=== PATIENT | male | born 1960 | race Caucasian/White ===

== ENCOUNTER 2018-07-05 05:27 | Day surgery (SDC) | payer OTHER ==
[2018-06-24 13:17] LABS: HEMATOCRIT 42.8 % (37.9-51.0); HEMOGLOBIN 15.1 g/dL (13.5-17.0); MEAN CORPUSCULAR HEMOGLOBIN 30.5 pg (27.0-33.4); MEAN CORPUSCULAR HGB CONC 35.2 g/dL (32.0-36.0); MEAN CORPUSCULAR VOLUME 87 fl (80-97); PLATELET COUNT 195 10^3/uL (150-450); RED BLOOD COUNT 4.95 10^6/uL (4.35-5.55); RED CELL DISTRIBUTION WIDTH 13.2 % (11.5-14.0); WHITE BLOOD COUNT 7.3 10^3/uL (4.0-10.5)
[2018-06-24 13:31] LABS: INTERNATIONAL RATION (INR) 0.99; PROTHROMBIN TIME 13.6 SEC (11.4-15.4)
[2018-06-24 13:32] LABS: PARTIAL THROMBOPLASTIN TIME 30.1 SEC (23.5-35.8)
[2018-06-24 13:42] LABS: ANION GAP 11 (5-19); BLOOD UREA NITROGEN 16 mg/dL (7-20); CALCIUM 9.3 mg/dL (8.4-10.2); CARBON DIOXIDE 26 mmol/L (22-30); CHLORIDE 102 mmol/L (98-107); GLUCOSE 162 mg/dL (75-110); POTASSIUM 4.2 mmol/L (3.6-5.0); SODIUM 139.4 mmol/L (137-145)
--- NOTE | 2018-06-24 18:51 | EKG REPORT ---
SEVERITY:- NORMAL ECG - SINUS RHYTHM : Confirmed by: Lachelle Chambers 24-Jun-2018 18:50:17
[~2018-07-05 05:27] MED LIST: CEFAZOLIN 1 GM/D5W RTU 1 GM/50 ML RTUPB IV ONE; CEFAZOLIN 1 GM/D5W RTU 1 GM/50 ML RTUPB IV PRN; LACTATED RINGERS 1000 ML IV PRN; LIDOCAINE 0.5% INJ-PF (5 MG/ML) 50 ML SDV SUBCUT PRN
[2018-07-05] MEDS ORDERED: FENTANYL CITRATE INJ/PF 100 MCG/2 ML AMPUL ONE (06:43)
[2018-07-05] MEDS ORDERED: HYDROMORPHONE HCL INJ/PF 2 MG/ML AMPULE ONE (06:44)
[2018-07-05] MEDS ORDERED: MIDAZOLAM 2 MG/2 ML INJ ONE (06:44)
[2018-07-05] MEDS ORDERED: PROPOFOL INJ 200 MG/20 ML VIAL IV ONE ×3 (06:44→09:46)
[2018-07-05] MEDS ORDERED: SODIUM BICARBONATE 8.4% INJ 50 MEQ/50 ML DISP.SYRIN ONE (07:12)
[2018-07-05] MEDS ORDERED: LIDOCAINE 1%/EPINEPHRINE INJ 20 ML VIAL ONE (07:12)
[2018-07-05] MEDS ORDERED: OXYCODONE-ACETAMINOPHEN 5-325 MG TABLET PO PRN ×2 (08:12)
[2018-07-05] MEDS ORDERED: DIPHENHYDRAMINE HCL 50 MG/ML VIAL IV PRN (08:12)
[2018-07-05] MEDS ORDERED: PROMETHAZINE HCL INJ 25 MG/1 ML VIAL IV PRN (08:12)
[2018-07-05] MEDS ORDERED: FENTANYL CITRATE INJ/PF 100 MCG/2 ML AMPUL IV PRN ×3 (08:12)
[2018-07-05] MEDS ORDERED: MORPHINE SULFATE 10 MG/ML INJ IV PRN (08:12)
[2018-07-05] MEDS ORDERED: MEPERIDINE HCL/PF INJ 25 MG/1 ML DISP.SYRIN IV PRN (08:12)
[2018-07-05] MEDS ORDERED: ONDANSETRON HCL INJ/PF 4 MG/2 ML SDV IV PRN (08:12)
--- NOTE | 2018-07-05 09:45 | Operative Report ---
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 Patient was brought into the operating room and placed on the operating room table in a sloppy lateral position. Patient was then prepped with a Betadine scrub and Betadine solution and draped in a sterile and aseptic manner. The area was then marked. The area was marked with a half a centimeter and a 1 cm margin. It was felt that we can achieve a 1 cm margin so we decided to go with a 1 cm margin resection. Even though the pathology came back melanoma in situ was a very aggressive appearing lesion. We also had clear the margins on our initial resection. There was an open wound that was healing and some of the healing process was excluded from the measurement of the margins. This would give us the widest margin and safest margin that we could possibly obtain still being able to give him a great anesthetic reconstruction. So after we outlined the area to be resected we used a 1 cm outline florentin. The area was then anesthetized with 1% lidocaine with epinephrine and bicarbonate for its anesthetic and hemostatic effects. The area that was outlined was then excised. The bipolar and the [place] tip Bovie was used for the dissection. The dissection continued down through Harshad's fascia down to the muscle fascia. We then resected the area off of the muscle fascia. Throughout the case the bipolar and Bovie were used for hemostasis. This was a very large defect. We had considered a primary closure but this would go against the natural relaxed skin tension lines. A primary closure would be too tight and would have increased chance of dehiscence. This will leave more of a scar so we decided to use a sliding advancement flap reconstruction which would camouflage the scar better and take tension off of the closure so that would be less chances of complications. The flap that we used was able to harvest some of the laxity of the skin in order to give a tension-free closure. There was also a flap that would be traceable in case there was any problem with the pathology. Then we went ahead and outlined the flap and anesthetized it. We then incised the flap and developed a flap maintaining the subdermal plexus. Then we undermined 360 to allow for plate like scarring and minimize trap door deformity. Throughout the case hemostasis was achieved with the bipolar. We then sutured the flap into its new position using 2-0 Vicryl to close the Harshad's fascia for the subcutaneous and deep dermis. Skin was closed with a running subcuticular suture stitch using 3-0 PDS with knots being tied on the outside. And 3-0 PDS suture was used for support and placed in the central area of the incision. We then applied tincture Dermabond followed by a light pressure dressing. Patient was then reversed from anesthesia and taken to the [facility] for recovery. The patient tolerated well. There were no complications. Lesion size was 4 x 4.8 cm measuring from the inner margin please see pathology for actual size. Portions of this note may be dictated using [employer] voice recognition software. Occasional variations and spelling and vocabulary could be possible and are unintentional. Subjective: No complaints Objective: Vital signs stable afebrile No bleeding Dressing intact Assessment and plan: Doing well. Elevate the operative site. Resume medications. Take antibiotics for 1 day Follow-up Full instructions were given to the patient and family and they understand Portions of this note may be dictated using [employer] voice recognition software. Occasional variations and spelling and vocabulary could be possible and are unintentional. Additionally, there is a chance that some errors may not be caught or corrected. Please notify the offer of any discrepancies noted or if any statements are unclear. Additionally, there is a chance that some errors may not be caught or corrected. Please notify the author of any discrepancies noted or if any statements are unclear.
--- NOTE | 2018-07-05 09:47 | Discharge Summary ---
Discharge Summary (SDC) - Discharge Final Diagnosis: Melanoma in situ of the right of the midline central back Date of Surgery: 07/05/18 Condition: Good Forms: ASU Anesthesia D/C Instruction, Discharge POC-Surgical Service Treatment or Instructions: Antibiotics for 1 day, then discontinue. Elevate operative area to decrease swelling. Do not strain, or lift heavy objects. Call for excessive bleeding, increased temperature of 101, uncontrolled pain, or excessive nausea or vomiting. You may reach Dr. Floyd through his office at [phone]. In the event of an emergency after hours, then contact Dr. Floyd through [facility]. Return to the office for a postop check on . The time will be scheduled by the nursing staff of [facility] prior to discharge. Please give the patient a copy of their labs and EKG so they can bring this to their PMD. Thank you Portions of this note may be dictated using [employer] voice recognition software. Occasional variations and spelling and vocabulary could be possible and are unintentional. Additionally, there is a chance that some errors may not be caught or corrected. Please notify the offer of any discrepancies noted or if any statements are unclear. Discharge Diet: As Tolerated Discharge Activity: No Lifting/Push/Pulling Report the Following to Your Physician Immediately: Unusual Bleeding - Do not flex back or shoulders. Limit activities. No bending or straining.
[2018-07-05] MEDS ORDERED: ACETAMINOPHEN 1,000 MG/100 ML RTUPB IV ONE (09:51)
[2018-07-05] MEDS ORDERED: ONDANSETRON HCL INJ/PF 4 MG/2 ML SDV ONE (11:53)
[2018-07-05] MEDS ORDERED: DEXAMETHASONE SOD PHOSPHATE INJ 4 MG/1 ML VIAL ONE (11:53)
[2018-07-05 11:56] VITALS: BP 122/71
== END 2018-07-05 11:40 | disposition home or self-care (01) ==
LOC: OROUT 05:27
PROVIDERS: ATTEND Plastic Surgery
DX: D03.59 Melanoma in situ of other part of trunk (principal); E11.9 Type 2 diabetes mellitus without complications; I10 Essential (primary) hypertension; R01.1 Cardiac murmur, unspecified; Z79.899 Other long term (current) drug therapy; Z79.82 Long term (current) use of aspirin; Z79.84 Long term (current) use of oral hypoglycemic drugs
CPT/HCPCS: 93005; 36415; 82962; 85027; 85610; 85730; 80048; 93010; 14000; J2250; J0690; J1100; J3490 ×2; J1170; J2405; J2704; J0131; 300; J3010

== ENCOUNTER 2018-08-09 10:41 | Day surgery (SDC) | payer OTHER ==
[~2018-08-09 10:41] MED LIST changes: -LACTATED RINGERS 1000 ML IV PRN; -LIDOCAINE 0.5% INJ-PF (5 MG/ML) 50 ML SDV SUBCUT PRN
[2018-08-09] MEDS ORDERED: FENTANYL CITRATE INJ/PF 100 MCG/2 ML AMPUL ONE (11:15)
[2018-08-09] MEDS ORDERED: MIDAZOLAM 2 MG/2 ML INJ ONE (11:15)
[2018-08-09] MEDS ORDERED: PROPOFOL INJ 200 MG/20 ML VIAL IV ONE (11:16)
[2018-08-09] MEDS ORDERED: LIDOCAINE 1%/EPINEPHRINE INJ 20 ML VIAL ONE (11:17)
[2018-08-09] MEDS ORDERED: POVIDONE-IODINE 5% OPH PREP SOLN 30 ML ONE (11:17)
[2018-08-09] MEDS ORDERED: SODIUM BICARBONATE 8.4% INJ 50 MEQ/50 ML DISP.SYRIN ONE (11:17)
[2018-08-09] MEDS ORDERED: FENTANYL CITRATE INJ/PF 100 MCG/2 ML AMPUL IV PRN ×3 (12:25)
[2018-08-09] MEDS ORDERED: MINERAL OIL (STERILE) 10 ML VIAL ONE (12:37)
--- NOTE | 2018-08-09 13:39 | Operative Report ---
Operative Report DATE OF SURGERY: 08/09/18 PREOPERATIVE DIAGNOSIS: Basal cell carcinoma of the scapha of the left ear POSTOPERATIVE DIAGNOSIS: Same OPERATION: Excision of basal cell carcinoma from the left scapha ear with frozen section margin control and reconstruction with a split thickness graft taken from the left thigh. A bolus tie-over dressing was applied SURGEON: SHAWN ARENAS ANESTHESIA: LMAC TISSUE REMOVED OR ALTERED: Basal cell carcinoma COMPLICATIONS: None ESTIMATED BLOOD LOSS: Minimal PROCEDURE: The patient was brought into the operating room. The patient was laid on the operating room table in a supine position. The patient was prepped and draped in a sterile and aseptic fashion. After a timeout we then went ahead and marked the area at the Scaphe of the left ear to be resected. The 12:00 margin the apex of the ear. The 3:00 margin the posterior ear. The 6:00 margin the lobule. The 9:00 margin the anterior ear. Then went ahead and anesthetize the area with 1% lidocaine with epinephrine. Then went ahead and excise the area. Stitch was placed at 12:00 and it was sent for frozen section. Frozen section results came back that the deep and lateral margins were clear. We irrigated the wound with Betadine sterile water to lyse any remaining cancer cells. We then went ahead and decided that because of the size of the defect we will proceed with a skin graft. There was a small amount of perichondrium that still remained so a split- thickness skin graft would be the best option because of its need for less blood supply then a full-thickness graft. We decided to harvest the graft from left thigh. We then went ahead and harvest the split thickness graft using the Weck knife. The harvest site had Xeroform applied and at the end the case a light pressure dressing. Graft was then cut to the appropriate size and placed into the area of defect. It was then sutured into place with 4-0 Prolene sutures leaving one end long. After all the sutures were placed we then went ahead and applied Xeroform. Then went ahead and created a bolus dressing and tied each suture 180 from each other. Then tied the sutures again to each other. Bacitracin was applied. 4 x 4's were applied and tincture benzoin and the dressing was held into place with an Srikanth wrap. At the end of the case the patient was doing well and brought to the [facility] for recovery The approximate size of the lesion was approximately 1.7 cm. This dictation was performed using [employer] naturally speaking. If there are any inconsistencies please contact the dictating surgeon. Subjective: No complaints Objective: Vital signs stable afebrile No bleeding Dressing intact Assessment and plan: Doing well. Elevate the operative site. Resume medications. Take antibiotics for 1 day Follow-up Full instructions were given to the patient and family and they understand Portions of this note may be dictated using [employer] voice recognition software. Occasional variations and spelling and vocabulary could be possible and are unintentional. Additionally, there is a chance that some errors may not be caught or corrected. Please notify the offer of any discrepancies noted or if any statements are unclear.
--- NOTE | 2018-08-09 13:40 | Discharge Summary ---
Discharge Summary (SDC) - Discharge Final Diagnosis: Basal cell carcinoma of the left ear Date of Surgery: 08/09/18 Condition: Good Treatment or Instructions: Antibiotics for 1 day, then discontinue. Elevate operative area to decrease swelling. Do not strain, or lift heavy objects. Call for excessive bleeding, increased temperature of 101, uncontrolled pain, or excessive nausea or vomiting. You may reach Dr. Arenas through his office at [phone]. In the event of an emergency after hours, then contact Dr. Arenas through [facility]. Return to the office for a postop check on . The time will be scheduled by the nursing staff of [facility] prior to discharge. Please give the patient a copy of their labs and EKG so they can bring this to their PMD. Thank you Portions of this note may be dictated using [employer] voice recognition software. Occasional variations and spelling and vocabulary could be possible and are unintentional. Additionally, there is a chance that some errors may not be caught or corrected. Please notify the offer of any discrepancies noted or if any statements are unclear. Referrals: SHAWN ARENAS MD [ACTIVE STAFF] - 08/22/18 3:30 pm Discharge Diet: As Tolerated Discharge Activity: No Lifting/Push/Pulling Report the Following to Your Physician Immediately: Unusual Bleeding - Keep head elevated. Leave head dressing intact. Leave leg dressing intact.
[2018-08-09 15:02] VITALS: BP 145/84
== END 2018-08-09 15:00 | disposition home or self-care (01) ==
LOC: OROUT 10:41
PROVIDERS: ATTEND Plastic Surgery
DX: C44.219 Basal cell carcinoma of skin of left ear and external auricular canal (principal); E11.9 Type 2 diabetes mellitus without complications; I10 Essential (primary) hypertension; Z79.84 Long term (current) use of oral hypoglycemic drugs; Z79.899 Other long term (current) drug therapy; Z79.82 Long term (current) use of aspirin
CPT/HCPCS: 82962; 88305 ×2; 88331 ×2; 00300; 11642; 15120; J2250; J0690; J3010; J3490 ×4; J2704; 300; 88307

== ENCOUNTER 2018-11-01 05:27 | Day surgery (SDC) | payer OTHER ==
[2018-10-25 10:53] LABS: INTERNATIONAL RATION (INR) 1.05; PROTHROMBIN TIME 13.7 SEC (11.4-15.4)
[2018-10-25 10:54] LABS: HEMATOCRIT 46.9 % (37.9-51.0); HEMOGLOBIN 16.3 g/dL (13.5-17.0); MEAN CORPUSCULAR HEMOGLOBIN 30.5 pg (27.0-33.4); MEAN CORPUSCULAR HGB CONC 34.7 g/dL (32.0-36.0); MEAN CORPUSCULAR VOLUME 88 fl (80-97); PARTIAL THROMBOPLASTIN TIME 27.5 SEC (23.5-35.8); PLATELET COUNT 205 10^3/uL (150-450); RED BLOOD COUNT 5.34 10^6/uL (4.35-5.55); RED CELL DISTRIBUTION WIDTH 13.4 % (11.5-14.0); WHITE BLOOD COUNT 8.4 10^3/uL (4.0-10.5)
[2018-10-25 11:24] LABS: ANION GAP 10 (5-19); BLOOD UREA NITROGEN 15 mg/dL (7-20); CARBON DIOXIDE 26 mmol/L (22-30); CHLORIDE 103 mmol/L (98-107); GLUCOSE 145 mg/dL (75-110); POTASSIUM 4.4 mmol/L (3.6-5.0)
[~2018-11-01 05:27] MED LIST changes: +AMPICILLIN SODIUM/SULBACTAM NA 3 GM in NORMAL SALINE 100 ML IV PRN; -CEFAZOLIN 1 GM/D5W RTU 1 GM/50 ML RTUPB IV ONE; -CEFAZOLIN 1 GM/D5W RTU 1 GM/50 ML RTUPB IV PRN; +LACTATED RINGERS 1000 ML IV PRN; +LIDOCAINE 0.5% INJ-PF (5 MG/ML) 50 ML SDV SUBCUT PRN
[2018-11-01 06:33] LABS: INTERNATIONAL RATION (INR) 1.11; PROTHROMBIN TIME 14.3 SEC (11.4-15.4)
[2018-11-01 06:34] LABS: PARTIAL THROMBOPLASTIN TIME 28.7 SEC (23.5-35.8)
[2018-11-01] MEDS ORDERED: FENTANYL CITRATE INJ/PF 100 MCG/2 ML AMPUL ONE (07:05)
[2018-11-01] MEDS ORDERED: MIDAZOLAM 2 MG/2 ML INJ ONE (07:05)
[2018-11-01] MEDS ORDERED: KETAMINE HCL INJ 500 MG/10 ML VIAL ONE (07:05)
[2018-11-01] MEDS ORDERED: ONDANSETRON HCL INJ/PF 4 MG/2 ML SDV ONE (07:06)
[2018-11-01] MEDS ORDERED: PROPOFOL INJ 200 MG/20 ML VIAL IV ONE ×2 (07:06→09:23)
[2018-11-01] MEDS ORDERED: POVIDONE-IODINE 5% OPH PREP SOLN 30 ML ONE (07:09)
[2018-11-01] MEDS ORDERED: LIDOCAINE 1%/EPINEPHRINE INJ 20 ML VIAL ONE (07:09)
[2018-11-01] MEDS ORDERED: SODIUM BICARBONATE 4.2% INJ (2.5 MEQ/5 ML) VIAL ONE (07:09)
[2018-11-01] MEDS ORDERED: PROMETHAZINE HCL INJ 25 MG/1 ML VIAL IV PRN (07:57)
[2018-11-01] MEDS ORDERED: FENTANYL CITRATE INJ/PF 100 MCG/2 ML AMPUL IV PRN ×3 (07:57)
[2018-11-01] MEDS ORDERED: DIPHENHYDRAMINE HCL 50 MG/ML VIAL IV PRN (07:57)
[2018-11-01] MEDS ORDERED: MEPERIDINE HCL/PF INJ 25 MG/1 ML DISP.SYRIN IV PRN (07:57)
[2018-11-01] MEDS ORDERED: MORPHINE SULFATE 10 MG/ML INJ IV PRN (07:57)
--- NOTE | 2018-11-01 09:27 | Operative Report ---
Operative Report DATE OF SURGERY: 11/01/18 PREOPERATIVE DIAGNOSIS: Basal cell carcinoma of the right lower lip medial POSTOPERATIVE DIAGNOSIS: same OPERATION: Excision of basal cell carcinoma from the right lower medial lip with frozen section margin control and reconstruction with a bilateral lower lip sliding advancement flap SURGEON: SHAWN ARENAS ANESTHESIA: LMAC TISSUE REMOVED OR ALTERED: Basal cell carcinoma COMPLICATIONS: None ESTIMATED BLOOD LOSS: Minimal PROCEDURE: Patient seen and was marked prior to being brought into the operating room. Patient was brought into the operating room and placed on the operating room table in a supine position. Patient was then prepped with a Betadine scrub and Betadine solution and draped in a sterile and aseptic manner. The area was then marked. The white roll vermilion border was tattooed in order to aid with the alignment for the closure. The outline for the resection included the wet mucosa quite dry mucosa white roll vermilion border and skin portion of the lip. Patient had a very big discrepancy between the lateral portion of the lip in the central portion of the lip. This will make it difficult for the reconstruction because of this discrepancy in volume of the 2 portions of the remaining lip. 12 O'clock was marked towards the upper lip 3 O'clock was marked towards the lateral commissure on the left 6:00 was marked towards the chin 9:00 was marked towards the lateral commissure on the right The area was then anesthetized with 1% lidocaine with epinephrine and bicarbonate for its anesthetic and hemostatic effects. The area was then excised and marked at 12:00. The specimen was sent for frozen section. The results came back that the deep and lateral margins were free. We had considered a primary closure but this would go against the natural relaxed skin tension lines. A primary closure would be too tight and would have increased chance of dehiscence. Patient had a very thick lip and dense lip with minimal mobility. A direct primary closure was too tight. This will leave more of a scar so we decided to use a lower lip bilateral sliding advancement flap reconstruction which would camouflage the scar better and take tension off of the closure so that would be less chances of complications. By using this reconstruction it would allow us to mobilize more tissue and relieve tension on the closure. Then we went ahead and outlined the flap and anesthetized it. We then incised the flap and developed a flap maintaining the subdermal plexus. Then we undermined 360 to allow for plate like scarring and minimize trap door deformity. Throughout the case hemostasis was achieved with the bipolar. We then sutured the flap into its new position using and 5-0 Vicryl for the subcutaneous and deep dermis and 4-0 Vicryl for the support stitches of the orbicularis paralysis and the deeper tissue.. Skin was closed with a interrupted horizontal mattress and simple sutures using 5-0 Prolene and 5-0 chromic with knots being tied on the outside. We then applied tincture benzoin and Steri-Strips followed by a light pressure dressing. Bacitracin was applied to the mucosal portion of the lip. Patient was then reversed from anesthesia and taken to the [facility] for recovery. The patient tolerated well. There were no complications. Lesion size was approximately 1.2 cm please see pathology for actual size. Portions of this note may be dictated using [employer] voice recognition software. Occasional variations and spelling and vocabulary could be possible and are unintentional. Additionally, there is a chance that some errors may not be caught or corrected. Please notify the author of any discrepancies noted or if any statements are unclear. Subjective: No complaints Objective: Vital signs stable afebrile No bleeding Dressing intact Assessment and plan: Doing well. Elevate the operative site. Resume medications. Take antibiotics for 1 day Follow-up Full instructions were given to the patient and family and they understand Portions of this note may be dictated using [employer] voice recognition software. Occasional variations and spelling and vocabulary could be possible and are unintentional. Additionally, there is a chance that some errors may not be caught or corrected. Please notify the offer of any discrepancies noted or if any statements are unclear.
--- NOTE | 2018-11-01 09:29 | Discharge Summary ---
Discharge Summary (SDC) - Discharge Final Diagnosis: Basal cell carcinoma of the right lower lip medial Date of Surgery: 11/01/18 Condition: Good Treatment or Instructions: Leave the top dressing on for 2 days, then removed. Leave the steri-strip tapes on for 5 days, then removal. Then cleaning wound with peroxide and apply Neosporin/bacitracin 3 times per day. Antibiotics for 1 day, then discontinue. Elevate operative area to decrease swelling. Do not strain, or lift heavy objects. Call for excessive bleeding, increased temperature of 101, uncontrolled pain, or excessive nausea or vomiting. You may reach Dr. Floyd through his office at [phone]. In the event of an emergency after hours, then contact Dr. Floyd through [facility]. Return to the office for a postop check on . The time will be scheduled by the nursing staff of [facility] prior to discharge. Please give the patient a copy of their labs and EKG so they can bring this to their PMD. Thank you Portions of this note may be dictated using [employer] voice recognition software. Occasional variations and spelling and vocabulary could be possible and are unintentional. Additionally, there is a chance that some errors may not be caught or corrected. Please notify the offer of any discrepancies noted or if any statements are unclear. Referrals: CALISTA ULRICH PA-C [Primary Care Provider] - Discharge Diet: Clear Liquids Discharge Activity: No Lifting/Push/Pulling Report the Following to Your Physician Immediately: Unusual Bleeding - Keep head elevated. Clear liquids for 2 days. Full liquids for 2 days. Soft diet for 2 days. Do not open the mouth excessively.
[2018-11-01 12:22] VITALS: BP 143/79
== END 2018-11-01 10:50 | disposition home or self-care (01) ==
LOC: OROUT 05:27
PROVIDERS: ATTEND Plastic Surgery
DX: C44.01 Basal cell carcinoma of skin of lip (principal); I10 Essential (primary) hypertension; E11.65 Type 2 diabetes mellitus with hyperglycemia; Z85.820 Personal history of malignant melanoma of skin; Z85.828 Personal history of other malignant neoplasm of skin; Z79.01 Long term (current) use of anticoagulants; Z79.899 Other long term (current) drug therapy; Z79.82 Long term (current) use of aspirin; Z79.84 Long term (current) use of oral hypoglycemic drugs
CPT/HCPCS: 36415 ×2; 82962; 85027; 85610 ×2; 85730 ×2; 80048; 88305 ×2; 88331 ×2; 14060; J2250; J3010; J0295; J3490 ×4; J2405; J7050; J2704